=== PATIENT | female | born 1975 | race Caucasian/White ===

== ENCOUNTER 2017-06-13 13:05 | Emergency (ER) | payer SELFPAY ==
[~2017-06-13] VITALS: Ht 152.4 cm; Wt 64.0 kg
[~2017-06-13 13:05] MED LIST: BACT800T5 PO; CLIN300C5 PO; CLON0.5T PO; CYMB30CA PO; HYDR-3533 PO; [UNRECOGNIZED DRUG - OTHER] PO
[2017-06-13 13:07] VITALS: BP 124/76; PULSE 93; RESP 18; TEMP 98.1; O2SAT 96
--- NOTE | 2017-06-13 14:06 | PD ---
HPI Chief Complaint: Dizziness Time Seen by Provider: 13:54 Travel History International Travel<30 days: No Contact w/Intl Traveler<30days: No Traveled to known affect area: No History of Present Illness HPI Patient's main complaint is that she has had intermittent episodes of room spinning, that lasts approximately 20-30 seconds at a time. The symptoms seem to get aggravated with sudden movements of her head. Patient denies any alleviating factors. Patient denies any associated factors such as fever, headache, nausea, vomiting, diarrhea, rash, cough, runny nose, headache, chest pain, back pain, abdominal pain. Allergies penicillin Past medical history significant for tonsillectomy, appendectomy, cholecystectomy, hysterectomy, kidney stones, and fibromyalgia. 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) Reported Meds & Prescriptions Reported Meds & Active Scripts Active Meclizine (Meclizine HCl) 25 Mg Tab 25 Mg PO TID PRN 5 Days Bactrim DS (Sulfamethoxazole-Trimethoprim) 800-160 Mg Tab 1 Tab PO Q12HR Clindamycin (Clindamycin HCl) 300 Mg Cap 300 Mg PO Q6H 10 Days Reported Clonazepam 0.5 Mg Tab 0.5 Mg PO BID [Astratest] 5 Mg PO DAILY Cymbalta DR (Duloxetine HCl) 30 Mg Capdr 30 Mg PO DAILY Review of Systems General / Constitutional: No: Fever Eyes: No: Visual changes HENT: No: Headaches Cardiovascular: No: Chest Pain or Discomfort Respiratory: No: Shortness of Breath Gastrointestinal: No: Abdominal Pain Genitourinary: No: Dysuria Musculoskeletal: No: Pain Skin: No Rash Neurologic: Positive: Dizziness Psychiatric: No: Depression Endocrine: No: Polydipsia Hematologic/Lymphatic: No: Easy Bruising Physical Exam Narrative GENERAL: SKIN: Warm and dry. HEAD: Atraumatic. Normocephalic. EYES: Pupils equal and round. No scleral icterus. No injection or drainage. Fatigable lateral nystagmus noted, no vertical or rotary components. ENT: No nasal bleeding or discharge. Mucous membranes pink and moist. Right ear canal is impacted with cerumen. Left EAC is within normal limits. NECK: Trachea midline. No JVD. CARDIOVASCULAR: Regular rate and rhythm. RESPIRATORY: No accessory muscle use. Clear to auscultation. Breath sounds equal bilaterally. GASTROINTESTINAL: Abdomen soft, non-tender, nondistended. MUSCULOSKELETAL: Extremities without clubbing, cyanosis, or edema. No obvious deformities. NEUROLOGICAL: Awake and alert. No obvious cranial nerve deficits. Motor grossly within normal limits. Five out of 5 muscle strength in the arms and legs. Normal speech. Smooth rapid alternating movements, smooth heel to weber, smooth heel to toe. PSYCHIATRIC: Appropriate mood and affect; insight and judgment normal. Data Data Last Documented VS Vital Signs Date Time Temp Pulse Resp B/P (MAP) Pulse Ox O2 Delivery O2 Flow Rate FiO2 06/13/17 15:00 77 16 108/69 (82) 98 Room Air 06/13/17 13:07 98.1 Orders Orders Electrocardiogram (06/13/17 14:10) Complete Blood Count With Diff (06/13/17 14:10) Comprehensive Metabolic Panel (06/13/17 14:10) Troponin I (06/13/17 14:10) Prothrombin Time / Inr (Pt) (06/13/17 14:10) Act Partial Throm Time (Ptt) (06/13/17 14:10) Thyroid Stimulating Hormone (06/13/17 14:10) Meclizine (Antivert) (06/13/17 14:15) Ear Irrigation (06/13/17 14:10) Labs Laboratory Tests Test 06/13/17 14:23 White Blood Count 8.0 TH/MM3 Red Blood Count 3.94 MIL/MM3 Hemoglobin 12.3 GM/DL Hematocrit 36.3 % Mean Corpuscular Volume 92.2 FL Mean Corpuscular Hemoglobin 31.2 PG Mean Corpuscular Hemoglobin Concent 33.8 % Red Cell Distribution Width 12.0 % Platelet Count 270 TH/MM3 Mean Platelet Volume 8.8 FL Neutrophils (%) (Auto) 62.2 % Lymphocytes (%) (Auto) 26.2 % Monocytes (%) (Auto) 6.1 % Eosinophils (%) (Auto) 4.8 % Basophils (%) (Auto) 0.7 % Neutrophils # (Auto) 4.9 TH/MM3 Lymphocytes # (Auto) 2.1 TH/MM3 Monocytes # (Auto) 0.5 TH/MM3 Eosinophils # (Auto) 0.4 TH/MM3 Basophils # (Auto) 0.1 TH/MM3 CBC Comment DIFF FINAL Differential Comment Prothrombin Time 10.0 SEC Prothromb Time International Ratio 1.0 RATIO Activated Partial Thromboplast Time 28.4 SEC Blood Urea Nitrogen 12 MG/DL Creatinine 0.59 MG/DL Random Glucose 89 MG/DL Total Protein 7.0 GM/DL Albumin 3.4 GM/DL Calcium Level 8.3 MG/DL Alkaline Phosphatase 99 U/L Aspartate Amino Transf (AST/SGOT) 18 U/L Alanine Aminotransferase (ALT/SGPT) 22 U/L Total Bilirubin 0.1 MG/DL Sodium Level 138 MEQ/L Potassium Level 3.9 MEQ/L Chloride Level 103 MEQ/L Carbon Dioxide Level 31.0 MEQ/L Anion Gap 4 MEQ/L Estimat Glomerular Filtration Rate 112 ML/MIN Troponin I LESS THAN 0.02 NG/ML Thyroid Stimulating Hormone 3rd Gen 1.230 uIU/ML MDM Medical Decision Making Medical Screen Exam Complete: Yes Emergency Medical Condition: Yes Medical Record Reviewed: Yes Interpretation(s) EKG shows a normal sinus rhythm, 66 bpm, normal intervals, no STEMI pattern noted. Differential Diagnosis Peripheral vertigo versus central vertigo versus sinus disease versus seasonal allergy Narrative Course CBC is negative for leukocytosis, no anemia, normal platelet count, no left shift. Coagulation profile is within normal limits Chemistry showed normal electrolytes, normal kidney/liver/thyroid functions Negative cardiac enzymes Diagnosis Primary Impression: Peripheral vertigo involving right ear Additional Impression: Cerumen impaction right ear Patient Instructions: General Instructions, Vertigo (ED) Scripts Meclizine (Meclizine) 25 Mg Tab 25 MG PO TID Y for VERTIGO for 5 Days, #15 TAB 0 Refills Prov: Tim Velasco MD 06/13/17 Disposition: 01 DISCHARGE HOME Condition: Stable Tim Velasco MD Jun 13, 2017 14:06
[2017-06-13] MEDS ORDERED: MECL-62 PO (14:13)
[2017-06-13] MEDS ORDERED: MECLIZINE HCL 25 MG TAB PO ONE (14:15)
[2017-06-13 14:43] LABS: CHLORIDE 103 MEQ/L (98-107); SODIUM (NA) 138 MEQ/L (136-145)
[2017-06-13 14:44] LABS: AUTOMATED NEUTROPHIL # 4.9 TH/MM3 (1.8-7.7); BASOPHIL # 0.1 TH/MM3 (0-0.2); BASOPHIL % 0.7 % (0.0-2.0); EOSINOPHIL # 0.4 TH/MM3 (0-0.4); EOSINOPHIL % 4.8 % (0.0-4.0); HEMATOCRIT 36.3 % (35.0-46.0); HEMOGLOBIN 12.3 GM/DL (11.6-15.3); LYMPH % 26.2 % (9.0-44.0); LYMPHOCYTE # 2.1 TH/MM3 (1.0-4.8); MEAN CELL VOLUME 92.2 FL (80.0-100.0); MEAN CORPUSCULAR HEMOGLOBIN 31.2 PG (27.0-34.0); MEAN CORPUSCULAR HGB CONC 33.8 % (32.0-36.0); MEAN PLATELET VOLUME 8.8 FL (7.0-11.0); MONO % 6.1 % (0.0-8.0); MONOCYTE # 0.5 TH/MM3 (0-0.9); NEUT % 62.2 % (16.0-70.0); PLATELET COUNT 270 TH/MM3 (150-450); RED BLOOD COUNT 3.94 MIL/MM3 (4.00-5.30)
[2017-06-13 14:46] LABS: CALCIUM 8.3 MG/DL (8.5-10.1)
[2017-06-13 14:47] LABS: ALBUMIN 3.4 GM/DL (3.4-5.0); BLOOD UREA NITROGEN 12 MG/DL (7-18); GLUCOSE,RANDOM 89 MG/DL (74-106)
[2017-06-13 14:50] LABS: ALT (GPT) 22 U/L (10-53); AST (GOT) 18 U/L (15-37); CREATININE 0.59 MG/DL (0.50-1.00); GLOMERULAR FILTRATION RATE 112 ML/MIN (>89)
[2017-06-13 14:52] LABS: TOTAL BILIRUBIN ADULT 0.1 MG/DL (0.2-1.0)
[2017-06-13 14:53] LABS: ALKALINE PHOSPHATASE 99 U/L (45-117)
[2017-06-13 14:55] LABS: TROPONIN I LESS THAN 0.02 NG/ML (0.02-0.05)
[2017-06-13 15:00] VITALS: BP 108/69; PULSE 77; RESP 16; O2SAT 98
[2017-06-13 16:40] VITALS: BP 117/75
--- NOTE | 2017-06-14 16:03 | EKG ---
Date Performed: 06/13/2017 Time Performed: 14:46:55 PTAGE: 41 years EKG: Sinus rhythm WITH SHORT VA INTERVAL BORDERLINE ECG NO PREVIOUS TRACING DOCTOR: Derrick Miguel Interpretating Date/Time 06/14/2017 16:01:28
== END 2017-06-13 16:41 | disposition home or self-care (01) ==
LOC: PHED 13:05
DX: H81.391 Other peripheral vertigo, right ear (principal); H61.21 Impacted cerumen, right ear; F17.200 Nicotine dependence, unspecified, uncomplicated; M79.7 Fibromyalgia; Z79.899 Other long term (current) drug therapy
CPT/HCPCS: 80053; 84443; 84484; 85025; 85610; 85730; 93005; 99284